=== PATIENT | male | born 1975 | race Caucasian/White ===

== ENCOUNTER 2021-07-03 12:00 | Emergency (ER) | payer SELFPAY ==
[2021-07-03 12:18] VITALS: BP 156/95; PULSE 83; RESP 16; TEMP 36.2; O2SAT 100
--- NOTE | 2021-07-03 12:38 | ED.UPPEXIN ---
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 complaint: injury to: left Other Extremity Injury: Left: hand ( numbness and tingling thumb and 1st finger) and shoulder ( muscle strain and tightness) Handedness: left Severity: mild Related Data Allergies Allergy/AdvReac Type Severity Reaction Status Date / Time No Known Allergies Allergy Verified 07/03/21 12:21 Review of Systems Review of Systems: All systems reviewed & are unremarkable except as noted in HPI and below [facility] Past Medical History Medical History Patient denies medical problems Exam Const: General: no acute distress and alert Orientation/consciousness: patient oriented x3 HENMT: Head: normal to inspection Eyes: Conjunctivae: conjunctivae normal Pupils: Equal, round and reactive pupils present Neck: Neck: normal visual inspection, no lymphadenopathy and no meningeal signs Other: left cervical No paracervical tenderness with palpation in the muscle groups Chest: Chest palpation & inspection: normal inspection of the chest Resp: Effort & Inspection: normal respiratory effort Auscultation: clear to auscultation bilaterally Cardio: Rate: regular rate Rhythm: regular rhythm GI: GI Palp: Yes Soft to palpation Urinary Catheter: Urinary Catheter: patent and draining Skin: General skin exam: normal color Rashes: no rashes Neuro: Other: tenderness in the ulnar surface of his left elbow with palpation, having numbness and tingling to his left thumb and index finger Extrem: General: normal to inspection and no pedal edema Psych: Mental Status: mental status grossly normal Affect: normal affect Attitude: cooperative Course Course Emergency Course: patient received a dose of IM muscle relaxant and IM Depo-Medrol. Vital Signs Vital signs: Vital Signs Temperature 36.2 C L 07/03/21 12:18 Pulse Rate 83 07/03/21 12:18 Respiratory Rate 16 07/03/21 12:18 Blood Pressure 156/95 H 07/03/21 12:18 Pulse Oximetry 100 07/03/21 12:18 Temperature 36.2 C L 07/03/21 12:18 Pulse Rate 83 07/03/21 12:18 Respiratory Rate 16 07/03/21 12:18 Blood Pressure 156/95 H 07/03/21 12:18 Pulse Oximetry 100 07/03/21 12:18 Critical Care Time Critical Care Time Critical Care Time: No Discharge Plan Discharge Clinical Impression: Ulnar abutment syndrome of left wrist Cervical muscle strain Qualifiers: Encounter type: initial encounter Qualified Code(s): S16.1XXA - Strain of muscle, fascia and tendon at neck level, initial encounter Patient Disposition: Home, Self-Care Condition: Stable Instructions: Antibiotic Form, Cervical Strain (ED), Paresthesia (ED) Additional Instructions: advised to discontinue any form of ibuprofen, can take Tylenol extra-strength as needed take prednisone and muscle relaxant as prescribed and follow-up primary care physician. Can use a elbow pad to help relieve compression on the elbow. Prescriptions: New prednisone 20 mg tablet 20 mg PO DAILY 5 Days Qty: 5 RF: 0 cyclobenzaprine 10 mg tablet 10 mg PO TID Qty: 20 RF: 0 Follow-up/Referrals: UNKNOWN,DOCTOR [Primary Care Provider] - Stand Alone Forms: Work/School Release IP Time of Dispos
[2021-07-03] MEDS: methylPREDNISolone ACETATE 40 MG/ML VIAL 80 MG IM (12:41)
[2021-07-03] MEDS: ORPHENADRINE CITRATE 100 MG TABLET.ER PO (12:41)
[2021-07-03 13:08] VITALS: BP 151/61; PULSE 79; RESP 16; TEMP 37.1; O2SAT 98
== END 2021-07-03 13:10 | disposition home or self-care (01) ==
PROVIDERS: Emergency Provider Emergency Medicine
DX: G56.22 Lesion of ulnar nerve, left upper limb (principal); S16.1XXA Strain of muscle, fascia and tendon at neck level, initial encounter
CPT/HCPCS: 96372; 99283; A9270; J1030